=== PATIENT | female | born 1995 | race Caucasian/White ===

== ENCOUNTER 2023-02-23 21:17 | Emergency (ER) | payer OTHER ==
[~2023-02-23] VITALS: Ht 157.5 cm; Wt 137.9 kg
[2023-02-23 21:25] VITALS: BP 109/68; PULSE 77; RESP 18; TEMP 98; O2SAT 100
[2023-02-23 22:32] LABS: APPEARANCE,URINE CLEAR (CLEAR); BILIRUBIN,URINE NEGATIVE (NEGATIVE); BLOOD, URINE NEGATIVE (NEGATIVE); COLOR,URINE YELLOW (YELLOW); LEUKOCYTE ESTERASE ,URINE NEGATIVE (NEGATIVE); NITRITE, URINE POSITIVE (NEGATIVE); PROTEIN,URINE NEGATIVE (NEGATIVE); UGLUCOSE NEGATIVE (NEGATIVE); UROBILINOGEN,URINE 0.2 EU/dL (0.2 - 1)
[2023-02-23 22:41] LABS: BACTERIA,URINE >30 (MANY) /HPF (None Seen); MUCUS,URINE 1+ /LPF (None Seen); RBC,URINE 0-5 /HPF (0-5); SQUAMOUS EPITHELIAL CELL,UR 0-3 (FEW) /LPF (0-3 (FEW)); WBC,URINE 0-5 /HPF (0-5)
== END 2023-02-24 02:16 | disposition left against medical advice (07) ==
LOC: MED 21:17
DX: R53.1 Weakness (principal); R42 Dizziness and giddiness; R25.1 Tremor, unspecified; N89.8 Other specified noninflammatory disorders of vagina; Z53.21 Procedure and treatment not carried out due to patient leaving prior to being seen by health care provider
CPT/HCPCS: 81001; 81025; 87086; 99281

== ENCOUNTER 2023-05-14 22:17 | Emergency (ER) | payer MEDICAID, OTHER ==
[~2023-05-14] VITALS: Ht 157.5 cm; Wt 138.8 kg
[2023-05-14 22:50] VITALS: BP 108/68; PULSE 86; RESP 16; TEMP 98.1; O2SAT 99
[2023-05-15] MEDS ORDERED: NAPR-54 PO (04:39)
[2023-05-15] MEDS: KETOROLAC 30 MG/ML VIAL IM ONE (04:52)
== END 2023-05-15 04:52 | disposition home or self-care (01) ==
LOC: MED 22:17
DX: S80.02XA Contusion of left knee, initial encounter (principal); Z79.899 Other long term (current) drug therapy; W18.39XA Other fall on same level, initial encounter; Y92.89 Other specified places as the place of occurrence of the external cause; Y93.89 Activity, other specified; Y99.8 Other external cause status
CPT/HCPCS: 29505; 73562; 96372; 99283; J1885

== ENCOUNTER 2023-07-16 13:58 | Emergency (ER) | payer MEDICAID ==
[~2023-07-16] VITALS: Ht 157.5 cm; Wt 137.9 kg
[~2023-07-16 13:58] MED LIST: NAPR-337 PO
[2023-07-16 14:00] VITALS: BP 125/69; PULSE 71; RESP 18; TEMP 97.5; O2SAT 98
[2023-07-16] MEDS ORDERED: IBUP-1842 PO (15:13)
[2023-07-16] MEDS: KETOROLAC 30 MG/ML VIAL IM ONE (15:19)
[2023-07-16 15:21] VITALS: BP 122/62; PULSE 77; RESP 16; TEMP 98; O2SAT 99
== END 2023-07-16 15:21 | disposition home or self-care (01) ==
LOC: MED 13:58
DX: S83.92XA Sprain of unspecified site of left knee, initial encounter (principal); J45.909 Unspecified asthma, uncomplicated; Z79.1 Long term (current) use of non-steroidal anti-inflammatories (NSAID); X58.XXXA Exposure to other specified factors, initial encounter; Y93.89 Activity, other specified; Y92.89 Other specified places as the place of occurrence of the external cause; Y99.8 Other external cause status
CPT/HCPCS: 73562; 96372; 99283; J1885

== ENCOUNTER 2023-09-19 12:48 | Emergency (ER) | payer MEDICAID ==
[~2023-09-19] VITALS: Ht 157.5 cm; Wt 137.9 kg
[~2023-09-19 12:48] MED LIST changes: +IBUP-1842 PO
[2023-09-19 13:11] VITALS: BP 113/72; PULSE 75; RESP 22; TEMP 98; O2SAT 99
[2023-09-19] MEDS: ALBUTEROL SULFATE/IPRATROPIU 3 ML SOL IH ONE (13:42)
[2023-09-19 13:44] VITALS: PULSE 80; RESP 18; O2SAT 98
[2023-09-19 13:44] LABS: APPEARANCE,URINE CLEAR (CLEAR); BILIRUBIN,URINE NEGATIVE (NEGATIVE); BLOOD, URINE NEGATIVE (NEGATIVE); COLOR,URINE YELLOW (YELLOW); LEUKOCYTE ESTERASE ,URINE TRACE (NEGATIVE); NITRITE, URINE NEGATIVE (NEGATIVE); PROTEIN,URINE NEGATIVE (NEGATIVE); UGLUCOSE NEGATIVE (NEGATIVE); UROBILINOGEN,URINE 0.2 EU/dL (0.2 - 1)
[2023-09-19 14:05] LABS: RBC,URINE 0-5 /HPF (0-5)
[2023-09-19 14:07] LABS: BACTERIA,URINE FEW /HPF (None Seen); SQUAMOUS EPITHELIAL CELL,UR 4-10 (MOD) /LPF (0-3 (FEW))
[2023-09-19] MEDS ORDERED: CEPH-588 PO (14:14)
[2023-09-19] MEDS ORDERED: ALBU0.0912 IH (14:14)
[2023-09-19 14:55] VITALS: BP 113/72; PULSE 80; RESP 18; TEMP 98; O2SAT 98
== END 2023-09-19 14:56 | disposition home or self-care (01) ==
LOC: MED 12:48
DX: J45.909 Unspecified asthma, uncomplicated (principal); N39.0 Urinary tract infection, site not specified; Z79.1 Long term (current) use of non-steroidal anti-inflammatories (NSAID); Z79.2 Long term (current) use of antibiotics; Z79.899 Other long term (current) drug therapy
CPT/HCPCS: 71045; 81001; 81025; 87086; 93005; 94640; 94664; 99285

== ENCOUNTER 2023-09-28 11:31 | Emergency (ER) | payer MEDICAID ==
[~2023-09-28] VITALS: Ht 157.5 cm; Wt 137.7 kg
[~2023-09-28 11:31] MED LIST changes: +ALBU0.0912 IH; +CEPH-588 PO
[2023-09-28 11:45] VITALS: BP 129/81; PULSE 73; RESP 18; TEMP 97.1; O2SAT 98
[2023-09-28] MEDS: ACETAMINOPHEN EXTRA STRENGTH 500 MG TAB PO ONE (12:54)
[2023-09-28] MEDS ORDERED: ACET-10509 PO (13:23)
== END 2023-09-28 13:44 | disposition home or self-care (01) ==
LOC: MED 11:31
DX: K08.89 Other specified disorders of teeth and supporting structures (principal); J45.909 Unspecified asthma, uncomplicated; Z79.899 Other long term (current) drug therapy
CPT/HCPCS: 99282

== ENCOUNTER 2023-11-14 16:31 | Emergency (ER) | payer MEDICAID ==
[~2023-11-14] VITALS: Ht 157.5 cm; Wt 138.8 kg
[~2023-11-14 16:31] MED LIST changes: +ACET500T99 PO
[2023-11-14 16:56] VITALS: BP 120/72; PULSE 88; RESP 22; TEMP 97.9; O2SAT 99
[2023-11-14] MEDS: IBUPROFEN 600 MG TAB PO ONE (19:09)
[2023-11-14 19:12] VITALS: BP 119/75; PULSE 82; RESP 20; TEMP 98.2; O2SAT 99
[2023-11-14] MEDS ORDERED: IBUP-2213 PO (19:44)
== END 2023-11-14 19:52 | disposition home or self-care (01) ==
LOC: MED 16:31
DX: M79.672 Pain in left foot (principal); J45.909 Unspecified asthma, uncomplicated
CPT/HCPCS: 73630; 99283; Q0092

== ENCOUNTER 2023-11-16 11:03 | Emergency (ER) | payer MEDICAID ==
[~2023-11-16] VITALS: Ht 157.5 cm; Wt 139.3 kg
[~2023-11-16 11:03] MED LIST changes: +IBUP-2213 PO
[2023-11-16 11:29] VITALS: BP 132/81; PULSE 80; RESP 17; TEMP 97.7; O2SAT 98
[2023-11-16] MEDS: KETOROLAC 30 MG/ML VIAL IM ONE (13:12)
[2023-11-16 13:45] VITALS: BP 127/74; PULSE 74; RESP 18; TEMP 97.8; O2SAT 98
[2023-11-16] MEDS ORDERED: DICL20GE TP (14:09)
[2023-11-16] MEDS ORDERED: NAPR-337 PO (14:09)
== END 2023-11-16 14:15 | disposition home or self-care (01) ==
LOC: MED 11:03
DX: S93.602A Unspecified sprain of left foot, initial encounter (principal); J45.909 Unspecified asthma, uncomplicated; Z90.89 Acquired absence of other organs; Z79.899 Other long term (current) drug therapy; X58.XXXA Exposure to other specified factors, initial encounter; Y93.89 Activity, other specified; Y92.89 Other specified places as the place of occurrence of the external cause; Y99.8 Other external cause status
CPT/HCPCS: 73630; 81025; 93971; 96372; 99285; J1885

== ENCOUNTER 2023-11-23 23:30 | Emergency (ER) | payer MEDICAID ==
[~2023-11-23] VITALS: Ht 160 cm; Wt 140.6 kg
[~2023-11-23 23:30] MED LIST changes: +DICL20GE TP
[2023-11-23 23:41] VITALS: BP 127/67; PULSE 90; RESP 18; TEMP 98.7; O2SAT 99
[2023-11-24 00:37] LABS: FLU A ANTIGEN negative (NEGATIVE); FLU B ANTIGEN NEGATIVE (NEGATIVE)
[2023-11-24] MEDS: ONDANSETRON 4 MG ODT PO ONE (01:20)
[2023-11-24] MEDS ORDERED: ONDA-188 SL (02:05)
== END 2023-11-24 02:10 | disposition home or self-care (01) ==
LOC: MED 23:30
DX: B34.9 Viral infection, unspecified (principal); J45.909 Unspecified asthma, uncomplicated; Z20.822 Contact with and (suspected) exposure to COVID-19; Z79.899 Other long term (current) drug therapy
CPT/HCPCS: 71045; 87426; 87804; 99284; Q0162